=== PATIENT | male | born 1980 | race Caucasian/White ===

== ENCOUNTER 2021-08-10 08:26 | Outpatient (REF) | payer BC, SELFPAY ==
[2021-08-10 11:06] LABS: Alanine Aminotransferase 18 U/L (0-40); Albumin Level 4.3 g/dL (3.5-5.0); Alkaline Phosphatase 67 U/L (39-117); Anion Gap 10 (12-20); Aspartate Amino Transferase 16 U/L (5-37); Bilirubin Total 0.6 mg/dL (0.0-1.0); Blood Urea Nitrogen 14 mg/dL (9-16); Calcium 9.4 mg/dL (8.4-10.2); Carbon Dioxide 28 mmol/L (22-29); Chloride 103 mmol/L (96-108); Cholesterol 166 mg/dL; Estimated Glomerular Filt Rate > 60; Glucose Fasting 100 mg/dL (60-99); HDL Cholesterol 43 mg/dL; LDL Cholesterol Calculated 108 mg/dl; Potassium 4.3 mmol/L (3.3-5.1); Sodium 137 mmol/L (135-145); Total Protein 7.1 g/dL (6.5-8.0); Triglycerides 76 mg/dL
[2021-08-10 11:28] LABS: Prostate Specific Antigen Scr 0.76 ng/mL (<0.05-4.0)
[2021-08-15 15:06] LABS: Testosterone, Free 142.1 pg/mL (35.0-155.0); Testosterone, Total 502 ng/dL (250-1100)
== END 2021-08-10 08:27 | disposition home or self-care (01) ==
LOC: HO.WFDLDS 08:26
PROVIDERS: Visit Provider Family Medicine
DX: Z00.00 Encounter for general adult medical examination without abnormal findings (principal); Z12.5 Encounter for screening for malignant neoplasm of prostate; N52.9 Male erectile dysfunction, unspecified
CPT/HCPCS: 36415; 80053; 80061; 84153; 84402; 84403; 84443

== ENCOUNTER 2022-02-15 07:14 | Outpatient (REF) | payer BC, SELFPAY | END 2022-02-15 07:15 | disposition home or self-care (01) | LOC: HO.WFDLNP 07:14 | PROVIDERS: Visit Provider Family Medicine | DX: Z20.7 Contact with and (suspected) exposure to pediculosis, acariasis and other infestations (principal) | CPT/HCPCS: 87177; 87209 ==

== ENCOUNTER → 2022-07-10 07:50 | Outpatient (BNVA) | payer BC, SELFPAY | PROVIDERS: PCP Family Medicine; Visit Provider Nurse Practitioner Family | DX: Z13.89 Encounter for screening for other disorder (principal) ==

== ENCOUNTER → 2022-07-20 15:58 | Outpatient (REF) | payer BC, SELFPAY | LOC: HO.SL 15:58 | PROVIDERS: PCP Family Medicine; Visit Provider Nurse Practitioner Family | DX: G47.00 Insomnia, unspecified (principal); G47.30 Sleep apnea, unspecified; R06.83 Snoring; R03.0 Elevated blood-pressure reading, without diagnosis of hypertension | CPT/HCPCS: 95806 ==

== ENCOUNTER → 2022-11-02 08:50 | Outpatient (BNVA) | payer BC, SELFPAY | PROVIDERS: PCP Family Medicine; Visit Provider Nurse Practitioner Family ==

== ENCOUNTER 2022-11-29 07:01 | Outpatient (REF) | payer BC, SELFPAY ==
[2022-11-29 11:22] LABS: Appearance Urine Turbid; Color Urine Yellow; Glucose Urine UA Negative (Negative); Leukocyte Esterase Urine Negative (Negative); Nitrite Urine Negative (Negative); PH 5.5 (5.0-9.0); Specific Gravity - Urine 1.025 (1.005-1.025); Urine Blood Negative (Negative); Urine Ketones Negative (Negative); Urine Protein Trace mg/dL (Neg-Trace)
[2022-11-29 11:27] LABS: Alanine Aminotransferase 30 U/L (0-40); Albumin Level 4.3 g/dL (3.5-5.0); Alkaline Phosphatase 64 U/L (39-117); Anion Gap 15 (12-20); Aspartate Amino Transferase 18 U/L (5-37); Bilirubin Total 0.5 mg/dL (0.0-1.0); Blood Urea Nitrogen 18 mg/dL (9-16); Calcium 9.4 mg/dL (8.4-10.2); Carbon Dioxide 24 mmol/L (22-29); Chloride 103 mmol/L (96-108); Cholesterol 160 mg/dL; Estimated Glomerular Filt Rate > 60; Glucose Fasting 100 mg/dL (60-99); HDL Cholesterol 42 mg/dL; LDL Cholesterol Calculated 96 mg/dl; Potassium 3.9 mmol/L (3.3-5.1); Sodium 138 mmol/L (135-145); Total Protein 7.3 g/dL (6.5-8.0); Triglycerides 110 mg/dL
[2022-11-29 11:44] LABS: Creatinine Urine 235.19 mg/dL
[2022-11-29 11:46] LABS: Prostate Specific Antigen Scr 0.55 ng/mL (<0.05-4.0); TSH reflex Free T4 1.93 uIU/mL (0.32-4.0)
== END 2022-11-29 07:02 | disposition home or self-care (01) ==
LOC: HO.WFDLDS 07:01
PROVIDERS: Visit Provider Family Medicine
DX: Z00.00 Encounter for general adult medical examination without abnormal findings (principal); Z12.5 Encounter for screening for malignant neoplasm of prostate; I10 Essential (primary) hypertension; R61 Generalized hyperhidrosis
CPT/HCPCS: 36415; 80053; 80061; 81003; 82043; 84153; 84443

== ENCOUNTER 2023-04-11 09:28 | Outpatient (AMB) | payer BC, SELFPAY ==
[2023-04-11 09:32] VITALS: BP 126/80; PULSE 90; RESP 13; TEMP 36.6; O2SAT 98; BMI 27.9
--- NOTE | 2023-04-11 09:32 | MHC.PC.OV ---
Vital Signs 04/11/23 09:32 Height 5 ft 9 in Weight 189 lb 4 oz BMI 27.9 BP 126/80 Blood Pressure Location Lt brachial Position Sitting Respiration 13 Pulse 90 Pulse Source Pulse Oximeter Temp 98 F Temp Source Temporal Artery Scan Pulse Oximetry (%) 98 Oxygen Delivery Method Room Air Intake Visit Reasons: Red Line On Left Thumb Up to Left Bicep Intake Note: Patient states that he has a paronychia that started in left thumb and is now going up left arm. Patient states that left thumb has been tender and he has been taking ibuprofen for it. Patient states that when he flexes he can also feel a slight pain. Patient would also like a refill on his trazadone. Collet Driller Required: No Accompanied by: Self / Same As Patient Allergies No Known Allergies Allergy (Verified 04/11/23 10:01) Medication List - Last Reconciled 04/11/23 by Merrill Atwood CNP aluminum chloride 20% (Drysol) 1 appl topical 2XW PRN 30 days omeprazole 20 mg PO DAILY 90 days sildenafil 100 mg PO DAILY PRN 30 days trazodone 150 mg (1.5 x 100 mg) PO BEDTIME PRN 30 days Tobacco use date assessed: 04/11/23 Dental Screening Dental Screen Date: 04/11/23 Did you have a dental visit in the last 12 months?: Yes Did you have a dental problem in the last 6 months where you did not have access to dental care?: No Was dental information given to patient?: Patient has dentist HPI HPI Comments History of Present Illness Details 43-year-old male presents with complaints paronychia to the left medial nail fold of the left thumb for the past 4 days. He notes that the area has been painful and worst with touch. He has been taking Ibuprofen 600 mg twice daily with some improvement. He started applying warm soak yesterday. The area on the thumb is swollen and inflamed. Yesterday, he noticed a linear red line from the paronychia to his bicep today; the line is tender to deep touch. He denies drainage, fever, chills, body aches, fatigue, or weakness. [facility] Medical History Hemorrhoids ADHD Surgical History No pertinent past surgical history Family History Father Type 1 diabetes mellitus Heart attack Mother No problems noted. Social History Housing: House Alcohol intake: current Alcohol intake frequency: a few times a month Patient Tobacco Use Status: Former Tobacco user e-Cigarette/Vaping Use: Never Used Second Hand Smoke Exposure: No Substance Use Type: Marijuana service: No Current occupational status: employed Current occupation: Works @ a [employer] Current occupational exposures/hazards: No Cognitive needs: No Hearing needs: No Vision needs: No Questionnaire Thrive Questionnaire Date Thrive assessed: 08/01/21 LYNN-7 AMB Questionnaire LYNN-7 Date LYNN - 7 assessed: 10/12/21 Source: Developed by Drs. Tucker Wheeler, April Bird, Amando Mccormack and colleagues, with an educational ellen from [employer]. Review of Systems Const Details: Const Denies chills, Denies fatigue, Denies fever(s), Denies headache(s) and Denies weakness ENT Denies dizziness and Denies headache(s) Card Denies chest pain, Denies lightheadedness, Denies dyspnea and Denies other (Palpitations) Resp Denies cough, Denies dyspnea, Denies wheezing and Denies other ( shortness of breath) GI Denies abdominal pain, Denies melena, Denies hematochezia, Denies change in bowel habits, Denies dyspepsia and Denies nausea Denies hematuria and Denies dysuria Musc Denies abnormal gait, Denies myalgias, Denies arthralgias, Denies numbness and Denies tingling Skin/Breast Reports as per HPI Neuro Denies abnormal gait, Denies dizziness, Denies headache(s), Denies memory loss, Denies numbness, Denies Sensory deficit (Neuro), Denies tingling and Denies weakness Psych Denies anxiety, Denies depression, Denies memory loss Endo Denies cold intolerance, Denies fatigue, Denies heat intolerance, Denies polydipsia and Denies polyuria Aller/Immun Denies wheezing Physical exam (Primary Care) Vital Signs: Last Vital Signs Temp 98 F 04/11/23 09:32 Pulse 90 04/11/23 09:32 Resp 13 04/11/23 09:32 BP 126/80 04/11/23 09:32 Pulse Ox 98 04/11/23 09:32 Oxygen Delivery Method Room Air 04/11/23 09:32 BMI result Body Mass Index 27.9 Tobacco/Smoking Status: Tobacco use Status Tobacco use date assessed 04/11/23 04/11/23 09:40 Patient Tobacco Use Status Former Tobacco user 04/11/23 09:40 e-Cigarette/Vaping Use Never Used 04/11/23 09:40 Thrive Assessment: Date of Thrive Assessment Date Thrive assessed 08/01/21 04/11/23 09:40 Const Other: General: no acute distress and well developed Nutritional Appearance: well nourished Orientation/consciousness: patient oriented x3 HENMT Head: Yes normocephalic and Yes atraumatic Eyes General: appearance normal, both eyes and all related structures Pupils: Equal, round and reactive pupils present EOM: EOMs intact bilaterally Resp Effort & Inspection: normal respiratory effort Auscultation: clear to auscultation bilaterally Cardio Rate: regular rate Rhythm: regular rhythm Heart sounds: S1 normal heart sound present, S2 normal heart sound present, no gallops, no murmurs and no rubs GI Palpation (GI): No Abdominal aortic bruit present, Soft to palpation, nontender, No hepatosplenomegaly present and No Rebound tenderness present Auscultation: normal bowel sounds General: Yes no CVA tenderness Back/Spine/Pelvis Back: no CVA tenderness Cervical Spine: cervical ROM normal and No Cervical spine tenderness Thoracic/Lumbar Spine: thoraco-lumbar ROM normal, No pain with thoraco-lumbar ROM, No thoracic spinal tenderness and No lumbar spinal tenderness Extrem General: Yes normal to inspection, No edema and No calf tenderness Skin Significant erythema, edema, and tenderness to the medial nail fold of the left thumb, consistent with paronychia. Red linear line extending from the paronychia to the left biceps; tenderness with deep palpation. No drainage noted Neuro General: patient oriented x3, gait normal and no focal neuro deficit Cranial nerves: Yes Equal, round and reactive pupils present Cognition (Neuro): normal cognition Gait exam (Neuro): Normal gait present Sensory Exam: No Sensory deficit (Neuro) Psych Appearance: grossly normal Affect: normal affect Attitude: cooperative Thought process: Normal thought process present Assessment and Plan Assessment & Plan (1) Paronychia of thumb, left: Code(s): L03.012 - Cellulitis of left finger Plan: 43-year-old male presents with complaints paronychia to the medial nail fold of the left thumb for the past 4 days. He noticed a red linear line extending from the Estrella care to the left biceps today. Significant erythema, edema, and tenderness to the medial nail fold of the left thumb, consistent with paronychia. Red linear line extending from the paronychia to the left biceps; tenderness with deep palpation. No drainage noted. Likely infected. Augmentin ordered. Take as prescribed Continue warm soaks with Hibiclens May take Tylenol ibuprofen for pain, fever, or discomfort Will check CBC and CMP Instructed on signs and symptoms of infection to monitor advised to return or go to the ED with worsening or new symptoms Verbalized understanding and agreed with treatment plan. Orders: Orders Complete Blood Count Auto Diff Today L03.012 - Cellulitis of left finger Comprehensive [place]. Panel Fast Today L03.012 - Cellulitis of left finger Medications: New amoxicillin-pot clavulanate 500-125 mg (Augmentin) 1 tab PO BID 7 days 14 tabs 0RF Refilled trazodone 150 mg (1.5 x 100 mg) PO BEDTIME 30 days PRN 45 tabs 0RF insomnia Coding Level of Care Code Est Pt Level 3 (61629) Diagnoses Paronychia of thumb, left L03.012
== END 2023-04-11 10:15 | disposition home or self-care (01) ==
PROVIDERS: PCP Family Medicine; Visit Provider Nurse Practitioner Family
DX: L03.012 Cellulitis of left finger (principal)
CPT/HCPCS: 99214

== ENCOUNTER 2023-04-12 07:01 | Outpatient (REF) | payer BC, SELFPAY ==
[2023-04-12 11:30] LABS: MANUAL DIFF FLAG NO
[2023-04-12 11:39] LABS: Basophils Percent Auto 0.3 % (0-2); Eosinophils Absolute Auto 0.1 X10*3/uL (0.0-0.4); Eosinophils Percent Auto 1.3 % (0-4); Hematocrit 44.2 % (42.0-52.0); Hemoglobin 14.8 g/dl (14.0-18.0); Imm Gran Abs Auto 0.03 X10*3/uL (0.00-0.03); Imm Gran Pct Auto 0.3 % (0.0-0.4); Lymphocytes Percent Auto 21.8 % (20-40); Mean Corpuscular HGB Conc 33.5 g/dl (31.0-36.0); Mean Corpuscular Volume 83.7 fL (80.0-98.0); Mean Platelet Volume 9.6 fL (9.4-12.4); Monocytes Absolute Auto 0.8 X10*3/uL (0.1-1.2); Monocytes Percent Auto 8.4 % (2-11); Neutrophils Absolute Auto 6.4 x10*3/uL (2.0-8.3); Neutrophils Percent Auto 67.9 % (45-73); Platelet Count 204 X10*3/uL (160-400); Red Blood Count 5.28 X10*6/uL (4.60-5.80); Red Cell Distribution Width 13.4 % (11.0-16.0); White Blood Count 9.4 X10*3/uL (4.8-10.8)
[2023-04-12 12:07] LABS: Alanine Aminotransferase 27 U/L (0-40); Albumin Level 4.2 g/dL (3.5-5.0); Alkaline Phosphatase 67 U/L (39-117); Anion Gap 13 (12-20); Aspartate Amino Transferase 19 U/L (5-37); Bilirubin Total 0.5 mg/dL (0.0-1.0); Blood Urea Nitrogen 18 mg/dL (9-16); Calcium 9.7 mg/dL (8.4-10.2); Carbon Dioxide 21 mmol/L (22-29); Chloride 107 mmol/L (96-108); Estimated Glomerular Filt Rate > 60; Glucose Fasting 103 mg/dL (60-99); Potassium 4.2 mmol/L (3.3-5.1); Sodium 137 mmol/L (135-145); Total Protein 7.5 g/dL (6.5-8.0)
== END 2023-04-12 07:02 | disposition home or self-care (01) ==
LOC: HO.WFDLDS 07:01
PROVIDERS: Visit Provider Nurse Practitioner Family
DX: L03.012 Cellulitis of left finger (principal)
CPT/HCPCS: 36415; 80053; 85025

== ENCOUNTER 2023-10-21 08:50 | Outpatient (AMB) | payer BC, SELFPAY ==
[2023-10-21 09:03] VITALS: BP 134/80; PULSE 74; O2SAT 95; BMI 27.7
--- NOTE | 2023-10-21 09:03 | A.OFFPC_ITS ---
Vital Signs 10/21/23 09:03 Height 5 ft 9 in Weight 187 lb 6 oz BMI 27.7 BP 134/80 Blood Pressure Location Lt brachial Position Sitting Pulse 74 Pulse Source Pulse Oximeter Pulse Oximetry (%) 95 Oxygen Delivery Method Room Air Intake Visit Reasons: CPE Intake Note: Patient is here for his physical. Patient would like refill of Trazodone. Allergies No Known Allergies Allergy (Verified 10/21/23 09:06) Tobacco use date assessed: 10/21/23 Dental Screening Dental Screen Date: 10/21/23 Did you have a dental visit in the last 12 months?: Yes Did you have a dental problem in the last 6 months where you did not have access to dental care?: No Was dental information given to patient?: Patient has dentist HPI CPE HPI Details 43 y/o male presents for a CPE with f/u labs and health maintenance. Some labs were drawn 04/12/23. Reviewed labs with pt. Elevated fasting glucose of 103. No recent lipid panel. Pt notes he has been doing a wellness challenge and has been running 5 miles a day. Pt reports ongoing complaints of a hemorrhoid. HPI Comments History of Present Illness Details Documentation assistance for Parish Zelaya MD, was provided by Jeff Ignacio, Neuropsychiatrist on 10/21/2023 9:38 AM EST. I, Dr. Zelaya, have read, observed, and verified documentation. [facility] Medical History Hemorrhoids ADHD Surgical History No pertinent past surgical history Family History Father Type 1 diabetes mellitus Heart attack Mother No problems noted. 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 1. Little interest or pleasure in doing things: not at all 2. Feeling down, depressed, or hopeless: not at all 3. Trouble falling or staying asleep, or sleeping too much: not at all 4. Feeling tired or having little energy: not at all 5. Poor appetite or overeating: not at all 6. Feeling bad about yourself - or that you are a failure or have let yourself or your family down: not at all 7. Trouble concentrating on things, such as reading the newspaper or watching television: not at all 8. Moving or speaking so slowly that other people could have noticed. Or the opposite - being so fidgety or restless that you have been moving around a lot more than usual: not at all 9. Thoughts that you would be better off or of hurting yourself in some way: not at all Total score: 0 Depression Screening Interpretation: Negative Depression Screening Done: Yes 03875 - PHQ-9 Billing: Yes Source: Developed by Drs. Tucker Wheeler, April Bird, Amando Mccormack and colleagues, with an educational ellen from [employer] Thrive Questionnaire Date Thrive assessed: 10/21/23 AUDIT C Alcohol Use Questionnaire (AUDIT-C) 1. How often do you have a drink containing alcohol?: 4 or more times a week 2. How many drinks containing alcohol do you have on a typical day when you are drinking?: 1 or 2 3. How often do you have six or more drinks on one occasion?: Never Total Score: 4 LYNN-7 AMB Questionnaire LYNN-7 Date LYNN - 7 assessed: 10/21/23 Feeling nervous, anxious, or on edge: 0 = Not at all Not being able to stop or control worryin = Not at all Worrying too much about different things: 0 = Not at all Trouble relaxin = Not at all Being so restless that it is hard to sit still: 0 = Not at all Becoming easily annoyed or irritable: 0 = Not at all Feeling afraid as if something awful might happen: 0 = Not at all Total LYNN-7 score (0-4 normal; 5-9 mild; 10-14 moderate; 15-21 severe): 0 Source: Developed by Drs. Tucker Wheeler, April Bird, Amando Mccormack and colleagues, with an educational ellen from [employer] LYNN-7 Assessment Billing LYNN-7 Assessment Tool: LYNN-7 Assessment 27057 Review of Systems Const Denies chills, Denies fatigue, Denies fever(s), Denies headache(s) and Denies weakness Eyes Denies change in vision ENT Denies dizziness, Denies headache(s), Denies hearing loss, Denies nasal congestion, Denies sinus pain, Denies sinus pressure and Denies sore throat Card Denies chest pain, Denies lightheadedness, Denies dyspnea and Denies other (palpitations) Resp Denies cough, Denies dyspnea and Denies wheezing GI Denies abdominal pain, Denies melena, Denies hematochezia, Denies change in bowel habits, Denies dyspepsia and Denies nausea Denies hematuria and Denies dysuria Musc Denies abnormal gait, Denies myalgias, Denies arthralgias, Denies numbness and Denies tingling Skin/Breast Denies rash, Denies unusual bruising and Denies wounds Neuro Denies abnormal gait, Denies dizziness, Denies headache(s), Denies memory loss, Denies numbness, Denies Sensory deficit (Neuro), Denies tingling and Denies weakness Psych Denies anxiety, Denies depression and Denies memory loss Endo Denies cold intolerance, Denies fatigue, Denies heat intolerance, Denies polydipsia and Denies polyuria Amado/Lymph Denies easy bleeding and Denies easy bruising Aller/Immun Denies wheezing Physical exam (Primary Care) Vital Signs: Last Vital Signs Pulse 74 10/21/23 09:03 BP 134/80 10/21/23 09:03 Pulse Ox 95 10/21/23 09:03 Oxygen Delivery Method Room Air 10/21/23 09:03 BMI result Body Mass Index 27.7 Tobacco/Smoking Status: Tobacco use Status Tobacco use date assessed 10/21/23 10/21/23 09:13 Patient Tobacco Use Status Former Tobacco user 10/21/23 09:13 e-Cigarette/Vaping Use Never Used 10/21/23 09:13 PHQ-9: PHQ-9 Score PHQ-9: Total score 0 10/21/23 09:16 Depression Screening Interpretation: Negative Thrive Assessment: Date of Thrive Assessment Date Thrive assessed 10/21/23 10/21/23 09:13 Const General: no acute distress, well developed, alert and awake Nutritional Appearance: well nourished Orientation/consciousness: patient oriented x3 HENMT Head: Yes normocephalic and Yes atraumatic Ears: hearing grossly normal bilaterally and TM's normal bilaterally General nose exam: Normal external nose present and Normal nares present Mouth: Normal oral and palatal mucosa present and moist mucous membranes Teeth and gingiva: dentition normal Throat: Yes posterior oropharynx normal Eyes General: appearance normal, both eyes and all related structures Pupils: Equal, round and reactive pupils present and Pupil accommodation reflex normal EOM: EOMs intact bilaterally Neck Neck: Yes normal visual inspection, Yes no lymphadenopathy and Yes trachea midline Thyroid: Thyroid normal Carotids: no bruits Lymphatic: no lymphadenopathy noted Chest Chest palpation & inspection: normal inspection of the chest Resp Effort & Inspection: normal respiratory effort Auscultation: clear to auscultation bilaterally Cardio Rate: regular rate Rhythm: regular rhythm Heart sounds: S1 normal heart sound present, S2 normal heart sound present, no gallops, no murmurs and no rubs Bruits: no abdominal aortic bruits and no carotid bruits GI Palpation (GI): No Abdominal aortic bruit present, Soft to palpation, nontender, No hepatosplenomegaly present and No Rebound tenderness present Auscultation: normal bowel sounds General: Yes no CVA tenderness Back/Spine/Pelvis Back: no CVA tenderness Cervical Spine: cervical ROM normal and No Cervical spine tenderness Thoracic/Lumbar Spine: thoraco-lumbar ROM normal, No pain with thoraco-lumbar ROM, No thoracic spinal tenderness and No lumbar spinal tenderness Skin Lesions: no lesions Rashes: no rashes Trauma: no lacerations or abrasions Wounds: no wounds Nails: normal Neuro General: patient oriented x3 Cranial nerves: Yes Equal, round and reactive pupils present Cognition (Neuro): normal cognition Gait exam (Neuro): Normal gait present Motor exam (neuro): 5/5 motor strength present throughout Sensory Exam: No Sensory deficit (Neuro) Deep tendon reflexes (DTR's): Right patellar reflex intensity grade: 2+ and Left patellar reflex intensity grade: 2+ Extrem General: Yes normal to inspection and No edema Psych Appearance: grossly normal Affect: normal affect Attitude: cooperative Thought process: Normal thought process present Assessment and Plan Assessment & Plan (1) Adult general medical exam: Code(s): Z00.00 - Encounter for general adult medical examination without abnormal findings Plan: 43-year-old?male?presents?for?complete?physical?exam Encouraged?healthy?diet?with?active?lifestyle?and?plenty?of?exercise (2) Elevated fasting glucose: Code(s): R73.01 - Impaired fasting glucose Plan: Elevated?fasting?blood?sugars?in?the?past. He?is?fasting?today?and?will?get?labs?drawn?including?fasting?blood?sugar?and?wi ll?add?A1c (3) GERD (gastroesophageal reflux disease): Code(s): K21.9 - Gastro-esophageal reflux disease without esophagitis Plan: Managed?with?omeprazole Continue?omeprazole (4) Screening for prostate cancer: Code(s): Z12.5 - Encounter for screening for malignant neoplasm of prostate Plan: PSA?last?year?was?within?normal?limits Rechecking?PSA (5) Family history of colon cancer: Code(s): Z80.0 - Family history of malignant neoplasm of digestive organs Plan: Patient?has?family?history?of?colon?cancer?and?would?like ?to?discuss?with?Gastroenterology. Had?been?referred?in?2021?but?he?says?he?was?never?contacted.??Making?referral?a gain. (6) Hemorrhoids: Code(s): K64.9 - Unspecified hemorrhoids Plan: Ongoing?hemorrhoid Referred?to?general?surgery Orders: Orders Comprehensive [place]. Panel Fast Today Z00.00 - Encounter for general adult medical examination without abnormal findings Lipid Panel Today Z00.00 - Encounter for general adult medical examination without abnormal findings Microalbumin, Random (w Creat) Today I10 - Essential (primary) hypertension TSH reflex Free T4 Today Z00.00 - Encounter for general adult medical examination without abnormal findings UA and rflx microscopic Today Z00.00 - Encounter for general adult medical examination without abnormal findings Prostate Specific Antigen Scr Today Z12.5 - Encounter for screening for malignant neoplasm of prostate Hemoglobin A1c Today R73.01 - Impaired fasting glucose Referrals General Surgery Referral K64.9 - Unspecified hemorrhoids Gastroenterology Referral Z80.0 - Family history of malignant neoplasm of digestive organs Medications: Changed From trazodone 150 mg (1.5 x 100 mg) PO BEDTIME 30 days PRN 45 tabs 0RF insomnia To trazodone 150 mg (1.5 x 100 mg) PO BEDTIME 90 days PRN 135 tabs 0RF insomnia Refilled trazodone 150 mg (1.5 x 100 mg) PO BEDTIME 30 days PRN 45 tabs 0RF insomnia Coding Level of Care Code Est Pt Level 3 (64330) Est Pt Prev Care 40-64y(49418) Diagnoses Adult general medical exam Z00.00 Elevated fasting glucose R73.01 GERD (gastroesophageal reflux disease) K21.9 Screening for prostate cancer Z12.5 Family history of colon cancer Z80.0 Hemorrhoids K64.9 Additional Codes LYNN-7 Assessment Billing - LYNN-7 Assessment Tool: LYNN-7 Assessment 05053 ([id number])
== END 2023-10-21 09:56 | disposition home or self-care (01) ==
PROVIDERS: Visit Provider Family Medicine
DX: Z00.00 Encounter for general adult medical examination without abnormal findings (principal); R73.01 Impaired fasting glucose; K21.9 Gastro-esophageal reflux disease without esophagitis; Z12.5 Encounter for screening for malignant neoplasm of prostate; Z80.0 Family history of malignant neoplasm of digestive organs; K64.9 Unspecified hemorrhoids
CPT/HCPCS: 99396

== ENCOUNTER 2023-10-21 10:11 | Outpatient (REF) | payer BC, SELFPAY ==
[2023-10-21 11:28] LABS: Appearance Urine Clear; Color Urine Yellow; Glucose Urine UA Negative (Negative); Leukocyte Esterase Urine Negative (Negative); Nitrite Urine Negative (Negative); PH 8.5 (5.0-9.0); Specific Gravity - Urine 1.025 (1.005-1.025); Urine Blood Negative (Negative); Urine Ketones Negative (Negative); Urine Protein Trace mg/dL (Neg-Trace)
[2023-10-21 11:45] LABS: Estimated Average Glucose 111 mg/dL; Hemoglobin A1c % 5.5 % (<6.0)
[2023-10-21 12:14] LABS: Alanine Aminotransferase 20 U/L (0-40); Albumin Level 4.3 g/dL (3.5-5.0); Alkaline Phosphatase 58 U/L (39-117); Anion Gap 13 (12-20); Aspartate Amino Transferase 21 U/L (5-37); Bilirubin Total 0.4 mg/dL (0.0-1.0); Blood Urea Nitrogen 18 mg/dL (9-16); Calcium 9.8 mg/dL (8.4-10.2); Carbon Dioxide 25 mmol/L (22-29); Chloride 105 mmol/L (96-108); Cholesterol 159 mg/dL (<200); Estimated Glomerular Filt Rate > 60; Glucose Fasting 97 mg/dL (60-99); HDL Cholesterol 43 mg/dL (>40); LDL Cholesterol Calculated 102 mg/dL (<100); Potassium 4.2 mmol/L (3.3-5.1); Sodium 139 mmol/L (135-145); Total Protein 7.4 g/dL (6.5-8.0); Triglycerides 74 mg/dL (<150)
[2023-10-21 12:19] LABS: Creatinine Urine 150.89 mg/dL; Microalbum/Creatinine Ratio Ur 17.2 ug/mg cr (<30)
[2023-10-21 12:31] LABS: TSH reflex Free T4 1.23 uIU/mL (0.32-4.0)
== END 2023-10-21 10:12 | disposition home or self-care (01) ==
LOC: HO.WFDLDS 10:11
PROVIDERS: Visit Provider Family Medicine
DX: Z00.00 Encounter for general adult medical examination without abnormal findings (principal); R73.01 Impaired fasting glucose; I10 Essential (primary) hypertension; Z12.5 Encounter for screening for malignant neoplasm of prostate
CPT/HCPCS: 36415; 80053; 80061; 81003; 82043; 82570; 83036; 84153; 84443

== ENCOUNTER 2023-11-14 14:03 | Outpatient (AMB) | payer BC, SELFPAY ==
--- NOTE | 2023-11-14 10:41 | A.OFFPC_ITS ---
Intake Visit Reasons: f/u CPE-labs via telemedicine City Superintendent Required: No Allergies No Known Allergies Allergy (Verified 11/14/23 14:01) Tobacco use date assessed: 10/21/23 Dental Screening Dental Screen Date: 10/21/23 HPI f/u CPE-labs via telemedicine HPI Details 43 y/o male presents to f/u CPE-labs via telemedicine. Labs were drawn 10/21/23. Reviewed labs with pt. A1c 5.5%. Triglycerides 74. TC 159. LDL 102. HDL 43. HPI Comments History of Present Illness Details Documentation assistance for Parish Zelaya MD, was provided by Jeff Ignacio,? [employer] Team Member on 11/14/2023 at 2:14 PM EST. I, Dr. Zelaya, have read, observed, and verified documentation. [facility] Medical History (Updated 11/14/23 @ 14:13 by Jeff Ignacio) Hemorrhoids ADHD Surgical History No pertinent past surgical history Family History Father Type 1 diabetes mellitus Heart attack Mother No problems noted. 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 Tucker Wheeler, April Bird, Amando Mccormack and colleagues, with an educational ellen from [employer]. Review of Systems Const Denies chills, Denies fatigue, Denies fever(s), Denies headache(s) and Denies weakness ENT Denies dizziness and Denies headache(s) Card Denies dyspnea Resp Denies cough, Denies dyspnea, Denies wheezing and Denies other (shortness of breath) Musc Denies numbness and Denies tingling Neuro Denies dizziness, Denies headache(s), Denies numbness, Denies tingling and Denies weakness Psych Denies anxiety and Denies depression Endo Denies fatigue Aller/Immun Denies wheezing Physical exam (Primary Care) Tobacco/Smoking Status: Tobacco use Status Tobacco use date assessed 10/21/23 11/14/23 10:41 Patient Tobacco Use Status Former Tobacco user 11/14/23 10:41 e-Cigarette/Vaping Use Never Used 11/14/23 10:41 Thrive Assessment: Date of Thrive Assessment Date Thrive assessed 10/21/23 11/14/23 10:41 Telehealth Telehealth Telehealth Platform: Telephone Location of provider rendering services: practice address Location of patient: other Patient Identification confirmed using: Name, : Yes Telehealth method: voice only Patient verbally consented to treatment: Yes Patient verbally consented to billing insurance company: Yes Patient informed of any privacy concerns related to visit: Yes Minutes spent on Phone/Video with Pt.: 6 Assessment and Plan Assessment & Plan (1) Elevated fasting glucose: Code(s): R73.01 - Impaired fasting glucose Plan: A1c?5.5%?is?in?to p?normal?range.??Likely?some?insulin?resistance?and?encouraged?a?diet?lower?in?s ugars?and?starches (2) Elevated LDL cholesterol level: Code(s): E78.00 - Pure hypercholesterolemia, unspecified Plan: LDL?cholesterol?1?O2?is?slightly?above?goal?of?less?than?100 HDL?is?good No?indication?for ?medicine?at?this?time.??Recommended?diet?lower?in?saturated?fats?and?cholestero l,?exercise?and?weight?loss Coding Level of Care Code Tele Est Pt Level 2 (30948) Diagnoses Elevated fasting glucose R73.01 Elevated LDL cholesterol level E78.00
== END 2023-11-25 09:37 | disposition home or self-care (01) ==
LOC: HO.HMGFM 14:03
PROVIDERS: PCP Family Medicine; Visit Provider Family Medicine
DX: R73.01 Impaired fasting glucose (principal); E78.00 Pure hypercholesterolemia, unspecified
CPT/HCPCS: 99441

== ENCOUNTER 2023-11-27 08:47 | Outpatient (AMB) | payer BC, SELFPAY ==
[2023-11-27 08:48] VITALS: BMI 27.7
--- NOTE | 2023-11-27 08:48 | A.OFFVIS_ITS ---
Vital Signs 11/27/23 08:48 Height 5 ft 9 in Weight 187 lb 6.004 oz BMI 27.7 Intake Visit Reasons: Hemorrhoids Intake Note: This patient presents for an assessment for hemorrhoids. Patient c/o; reports no rectal bleeding, pain or constipation. Material Checker Required: No Accompanied by: Self / Same As Patient Allergies No Known Allergies Allergy (Verified 11/27/23 08:54) Medication List - Last Reconciled 11/27/23 by Humberto Can MD metoprolol tartrate 25 mg PO DAILY PRN 30 days omeprazole 20 mg PO DAILY 90 days sildenafil 100 mg PO DAILY PRN 30 days trazodone 150 mg (1.5 x 100 mg) PO BEDTIME PRN 90 days HPI HPI Hemorrhoids: Details: 41-year-old male referred for hemorrhoid issues. He says he has known he has had hemorrhoids for over 10 years. He describes occasional bleeding do this sometimes can be heavy. He says that this is not very often. He says he also be have some discomfort bowel movements He says that his symptoms have been kind of annoying. He has planning a long hiking trip he is a little concerned about his hemorrhoids. He denies constipation. [facility] Medical History (Updated 11/27/23 @ 09:13 by Humberto Can MD) Bleeding hemorrhoids Hemorrhoids ADHD Surgical History No pertinent past surgical history Family History Father Type 1 diabetes mellitus Heart attack Mother No problems noted. Social History Housing: House Alcohol intake: current Alcohol intake frequency: a few times a month Patient Tobacco Use Status: Former Tobacco user e-Cigarette/Vaping Use: Never Used Second Hand Smoke Exposure: No Substance Use Type: Marijuana service: No Current occupational status: employed Current occupation: Works @ a [employer] Current occupational exposures/hazards: No Cognitive needs: No Hearing needs: No Vision needs: No Review of Systems Const Denies chills and Denies fever(s) Card Denies chest pain, Denies dyspnea and Denies dyspnea on exertion Resp Denies cough, Denies dyspnea and Denies dyspnea on exertion GI Reports hematochezia and Denies change in bowel habits Denies hematuria and Denies difficulty urinating Musc Denies back pain and Denies limited range of motion Neuro Denies focal weakness and Denies convulsions Psych Denies depression and Denies mood swings Physical Exam Vital Signs: BMI result Body Mass Index 27.7 Const General: comfortable and no acute distress Orientation/consciousness: patient oriented x3 Neck Neck: Yes no lymphadenopathy Resp Auscultation: clear to auscultation bilaterally Cardio Rhythm: regular rhythm GI Other: Rectal exam shows an external hemorrhoid on the right, moderate size Palpation (GI): Soft to palpation, nontender and no guarding Neuro General: patient oriented x3 Office Procedures Anoscopy He was in dandy-knife position. The anoscope was gently inserted. A full examination of the anal canal was done. He did have some mixed columns of internal external hemorrhoids on the right side. There were no other lesions. There was no obvious fissure. There was no induration on digital exam.. There was no blood [id number] Assessment & Plan Assessment & Plan (1) Bleeding hemorrhoids: Code(s): K64.9 - Unspecified hemorrhoids Category: Medical Plan: He says that he has hemorrhoids have been starting to annoy him over the years. He is considering proceeding with hemorrhoidectomy. I explained the technique of hemorrhoidectomy. I reviewed the risks including but not limited to bleeding, infections and postop pain. I reviewed with him what to expect postoperatively He says that he may schedule this in the wintertime when he has time off from work. He said he will call me once he decides to proceed. Coding Level of Care Code New Pt Level 3 (97804) Diagnoses Bleeding hemorrhoids K64.9 CPT Codes Details - CPT: 71877-[id number] ([id number])
== END 2023-11-27 09:09 | disposition home or self-care (01) ==
PROVIDERS: PCP Family Medicine; Referring Provider Family Medicine; Visit Provider Surgery
DX: K64.9 Unspecified hemorrhoids (principal)
CPT/HCPCS: 46600; 99203

== ENCOUNTER → 2023-11-27 08:47 | Outpatient (BNVA) | payer BC, SELFPAY | PROVIDERS: PCP Family Medicine; Visit Provider Surgery | DX: K64.8 Other hemorrhoids (principal); K64.4 Residual hemorrhoidal skin tags | CPT/HCPCS: 46600 ==

== ENCOUNTER 2024-04-23 08:25 | Outpatient (AMB) | payer BC, SELFPAY ==
--- NOTE | 2024-04-23 08:43 | A.OFFPC_ITS ---
Vital Signs 04/23/24 08:45 Height 5 ft 9 in Weight 176 lb 4 oz BMI 26.0 BP 120/60 Blood Pressure Location Rt brachial Position Sitting Respiration 14 Pulse 80 Pulse Source Pulse Oximeter Temp 98.1 F Temp Source Oral Pulse Oximetry (%) 96 Oxygen Delivery Method Room Air Intake Visit Reasons: ED Allergies No Known Allergies Allergy (Verified 04/23/24 08:43) Tobacco use date assessed: 10/21/23 Dental Screening Dental Screen Date: 10/21/23 HPI ED HPI Details 44 y/o male presents today with complain ts of ED. Had notes he had trialed sildenafil 100mg p.r.n. Has not trialed any other ED meds. He is on metoprolol 25mg for anxiety. HPI Comments History of Present Illness Details Documentation assistance for Parish Zelaya MD, was provided by Jeff Ignacio,? Setter Off on 04/23/2024 at 8:57 AM EST. I, Dr. Zelaya, have read, observed, and verified documentation. [facility] Medical History (Updated 04/23/24 @ 09:02 by Jeff Ignacio) Bleeding hemorrhoids Hemorrhoids ADHD Surgical History No pertinent past surgical history Family History Father Type 1 diabetes mellitus Heart attack Mother No problems noted. Social History Housing: House Alcohol intake: current Alcohol intake frequency: a few times a month Patient Tobacco Use Status: Former Tobacco user e-Cigarette/Vaping Use: Never Used Second Hand Smoke Exposure: No Substance Use Type: Marijuana service: No Current occupational status: employed Current occupation: Works @ a [employer] Current occupational exposures/hazards: No Cognitive needs: No Hearing needs: No Vision needs: No Questionnaire PHQ-9 Over the last 2 weeks, how often have you been bothered by any of the following problems? 1. Little interest or pleasure in doing things: not at all 2. Feeling down, depressed, or hopeless: not at all 3. Trouble falling or staying asleep, or sleeping too much: not at all 4. Feeling tired or having little energy: not at all 5. Poor appetite or overeating: not at all 6. Feeling bad about yourself - or that you are a failure or have let yourself or your family down: not at all 7. Trouble concentrating on things, such as reading the newspaper or watching television: not at all 8. Moving or speaking so slowly that other people could have noticed. Or the opposite - being so fidgety or restless that you have been moving around a lot more than usual: not at all 9. Thoughts that you would be better off or of hurting yourself in some way: not at all Total score: 0 Source: Developed by Drs. Tucker Wheeler, April Bird, Amando Mccormack and colleagues, with an educational ellen from [employer]. Thrive Questionnaire Date Thrive assessed: 10/21/23 I am a: Patient What is your living situation today?: I have a steady place to live Within the past 12 months, did the food you bought not last and you didn't have the money to get more?: Never true Within the past 12 months, did you worry whether your food would run out before you got money to buy more?: Never true Do you have trouble paying for medicines?: No Do you have trouble getting transportation to medical appointments?: No Do you have trouble paying your heating and electricity bill?: No Do you have trouble taking care of your child, family member or friend?: No Do you have trouble with day-to-day activities such as bathing, preparing meals, shopping, managing finances, etc.?: No Are you currently unemployed and looking for a job?: No Are you interested in more education?: Yes Please select the resources that you would like help with: None Currently or been in a relationship where the following occur: No concerns reported THRIVE Score: 0 AUDIT C Alcohol Use Questionnaire (AUDIT-C) 1. How often do you have a drink containing alcohol?: 2-4 times a month 2. How many drinks containing alcohol do you have on a typical day when you are drinking?: 1 or 2 3. How often do you have six or more drinks on one occasion?: Never Total Score: 2 LYNN-7 AMB Questionnaire LYNN-7 Date LYNN - 7 assessed: 10/21/23 Feeling nervous, anxious, or on edge: 2 = More than half the days Not being able to stop or control worryin = Not at all Worrying too much about different things: 0 = Not at all Trouble relaxin = Not at all Being so restless that it is hard to sit still: 0 = Not at all Becoming easily annoyed or irritable: 1 = Several days Feeling afraid as if something awful might happen: 0 = Not at all Total LYNN-7 score (0-4 normal; 5-9 mild; 10-14 moderate; 15-21 severe): 3 Source: Developed by Drs. Tucker Wheeler, April Bird, Amando Mccormack and colleagues, with an educational ellen from [employer]. Review of Systems Const Denies chills, Denies fatigue, Denies fever(s), Denies headache(s) and Denies weakness ENT Denies dizziness and Denies headache(s) Card Denies dyspnea Resp Denies cough, Denies dyspnea, Denies wheezing and Denies other (shortness of breath) Musc Denies numbness and Denies tingling Neuro Denies dizziness, Denies headache(s), Denies numbness, Denies tingling and Denies weakness Psych Reports anxiety and Denies depression Endo Denies fatigue Aller/Immun Denies wheezing Physical exam (Primary Care) Vital Signs: Last Vital Signs Temp 98.1 F 04/23/24 08:45 Pulse 80 04/23/24 08:45 Resp 14 04/23/24 08:45 BP 120/60 04/23/24 08:45 Pulse Ox 96 04/23/24 08:45 Oxygen Delivery Method Room Air 04/23/24 08:45 BMI result Body Mass Index 26.0 Tobacco/Smoking Status: Tobacco use Status Tobacco use date assessed 10/21/23 04/23/24 08:48 Patient Tobacco Use Status Former Tobacco user 04/23/24 08:48 e-Cigarette/Vaping Use Never Used 04/23/24 08:48 PHQ-9: PHQ-9 Score PHQ-9: Total score 0 04/23/24 08:48 Thrive Assessment: Date of Thrive Assessment Date Thrive assessed 10/21/23 04/23/24 08:48 Currently or been in a relationship where the following occur: No concerns reported Const General: well developed; No acute distress Nutritional Appearance: well nourished Orientation/consciousness: patient oriented x3 HENMT Head: Yes normocephalic and Yes atraumatic Eyes General: appearance normal, both eyes and all related structures Pupils: Equal, round and reactive pupils present EOM: EOMs intact bilaterally Resp Effort & Inspection: normal respiratory effort Neuro General: patient oriented x3 and gait normal Cranial nerves: Yes Equal, round and reactive pupils present Psych Affect: normal affect Coding Level of Care Code Est Pt Level 3 (27941) Diagnoses Erectile dysfunction N52.9 Anxiety F41.9 Assessment & Plan Assessment & Plan (1) Erectile dysfunction: Code(s): N52.9 - Male erectile dysfunction, unspecified Category: Medical Plan: Ongoing/worsening?erectile?dysfunction. Had?tried?sildenafil?100?mg?and?this?is?not?lasting Will?try?Cialis Will?recheck?testosterone?levels?and?labs?including?thyroid?levels. He?is?on?metoprolol?for?anxiety?and?this?could?be?affecting?ability?to?generate? an?erection?also. He?will?try?using Cialis?when?he?has?not?been? using?metoprolol We?discussed?other?medications?rather?than?metoprolol?for?anxiety-see?below Referred?to?urology Referred?to?[facility]?psychiatric?consult?team?to?help?connect?with?a?therapist/couple s?therapist (2) Anxiety: Code(s): F41.9 - Anxiety disorder, unspecified Category: Medical Plan: Ongoing?anxiety.??Metoprolol?significantly?helps.??However?this?may?be?worsening ?ED. We?discussed?1st?and?briefly?2nd?line?medications?for?anxiety. Patient?wou ld?like?to?continue?with?metoprolol?but?hold?off?on?using?it?when?he?wants?to?us e?Cialis?as?above Referred?to?[facility]?psychiatric?consult?team We?can?follow-up?in?a?few?weeks?to?see?if?above?plan?is?helpi ng.??Also?discussed?clonidine?may?acutely?improve?anxiety?without?lasting?as?chelo g Orders: Orders Comprehensive Rosamond. Panel Fast Today N52.9 - Male erectile dysfunction, unspecified, Z00.00 - Encounter for general adult medical examination without abnormal findings Lipid Panel Today E78.00 - Pure hypercholesterolemia, unspecified, Z00.00 - Encounter for general adult medical examination without abnormal findings TSH reflex Free T4 Today N52.9 - Male erectile dysfunction, unspecified, Z00.00 - Encounter for general adult medical examination without abnormal findings Testosterone, Free/Total Today N52.9 - Male erectile dysfunction, unspecified Referrals Urology Referral N52.9 - Male erectile dysfunction, unspecified Psychiatry Outpatient Consultation Service F41.9 - Anxiety disorder, unspecified, N52.9 - Male erectile dysfunction, unspecified Medications: New tadalafil (Cialis) administer approximately 30min before sexual activity; do not use more than 1 dose per 24hrs 20 mg PO DAILY 30 days PRN 20 tabs 4RF sexual activity Changed From metoprolol tartrate 25 mg PO DAILY 30 days PRN 14 tabs 1RF anxiety To metoprolol tartrate 25 mg PO DAILY 90 days PRN 90 tabs 3RF anxiety Discontinued sildenafil administer 30 minutes to 4 hours before activity Discontinued Reason: Doctor's Order 100 mg PO DAILY 30 days PRN 6 tabs 0RF sexual activity
[2024-04-23 08:45] VITALS: BP 120/60; PULSE 80; RESP 14; TEMP 36.7; O2SAT 96; BMI 26.0
== END 2024-04-23 10:00 | disposition home or self-care (01) ==
LOC: HO.HMCFM 08:26
PROVIDERS: PCP Family Medicine; Visit Provider Family Medicine
DX: N52.9 Male erectile dysfunction, unspecified (principal); F41.9 Anxiety disorder, unspecified

== ENCOUNTER 2025-03-05 15:49 | Outpatient (AMB) | payer BC, SELFPAY ==
--- OUTSIDE RECORDS SUMMARY | 2025-03-05 15:52 | XMS_ITS | Clinical Summary ---
Author Organization [facility] Address [address] [place] [id number] Phone Care Team Providers Care Tool Dresser Name Role Phone GomezJacy nation Bhavya JARQUIN Primary Care Provider Social History Tobacco Use Types Packs/Day Years Used Date Smoking Tobacco: Never Assessed Education Answer Date Recorded Are you interested in more education? Not on jerilyn e 10/12/2022 Are you concerned about learning? Not on file 10/12/2022 No 10/12/2022 No 10/12/2022 Digital Access Answer Date Recorded No 11/13/2022 No 11/13/2022 No 11/13/2022 Reliable internet access at home? Not on file 11/13/2022 Device with a working camera? Not on file Sex and Gender Information Value Date Recorded Sex Assigned at Not on file Legal Sex Male 8:52 AM EST Gender Identity Not on file Sexual Orientation Not on file Plan of Treatment Not on file Medical Devices Not on file Insurance [employer] PPO POS [employer] PPO POS [employer] PPO POS [employer] PPO POS [employer] PPO POS [employer] PPO POS Care Teams Tool Dresser Relationship Specialty Start Date End Date Jacy Gomez NP PCP - General Family Medicine 04/24/19 Additional Source Comments The information contained in this document represents components of the legal health record. It is not the complete legal health record.[facility]
[2025-03-05 15:53] VITALS: BP 130/82; PULSE 80; O2SAT 96; BMI 26.4
--- NOTE | 2025-03-05 15:53 | MHC.PC.OV ---
Vital Signs 03/05/25 15:53 Height 5 ft 9 in Weight 179 lb BMI 26.4 BP 130/82 Blood Pressure Location Rt brachial Position Sitting Pulse 80 Pulse Source Pulse Oximeter Pulse Oximetry (%) 96 Oxygen Delivery Method Room Air Intake Visit Reasons: Annual PE Allergies No Known Allergies Allergy (Verified 03/05/25 15:57) Medication List - Last Reconciled 03/05/25 by Parish Zelaya MD metoprolol tartrate 25 mg PO DAILY PRN 90 days omeprazole 20 mg PO DAILY 90 days tadalafil (Cialis) 20 mg PO DAILY PRN 30 days trazodone 150 mg (1.5 x 100 mg) PO BEDTIME PRN 30 days Tobacco use date assessed: 03/05/25 Dental Screening Dental Screen Date: 03/05/25 Did you have a dental visit in the last 12 months?: No Did you have a dental problem in the last 6 months where you did not have access to dental care?: No Was dental information given to patient?: Patient has dentist HPI Annual PE HPI Details 44 y/o male presents for a CPE with f.u labs and health maint. No recent labs to review. Reports FHx of colon cancer. Reports some relationship issues. HPI Comments History of Present Illness Details Documentation assistance for Parish Zelaya MD, was provided by Jeff Ignacio,? Forest [employer] Prevention Manager on 03/05/2025 at 4:13 PM EST. I, Dr. Zelaya, have read, observed, and verified documentation. ?? PFSH Medical History Bleeding hemorrhoids Hemorrhoids ADHD Surgical History No pertinent past surgical history Family History Father Type 1 diabetes mellitus Heart attack Mother No problems noted. Social History Housing: House Alcohol intake: current Alcohol intake frequency: a few times a month Patient Tobacco Use Status: Former Tobacco user e-Cigarette/Vaping Use: Never Used Second Hand Smoke Exposure: No Substance Use Type: Marijuana service: No Current occupational status: employed Current occupation: Works @ a [employer] Current occupational exposures/hazards: No Cognitive needs: No Hearing needs: No Vision needs: No Questionnaire PHQ-9 Over the last 2 weeks, how often have you been bothered by any of the following problems? 1. Little interest or pleasure in doing things: not at all 2. Feeling down, depressed, or hopeless: not at all 3. Trouble falling or staying asleep, or sleeping too much: not at all 4. Feeling tired or having little energy: not at all 5. Poor appetite or overeating: not at all 6. Feeling bad about yourself - or that you are a failure or have let yourself or your family down: not at all 7. Trouble concentrating on things, such as reading the newspaper or watching television: not at all 8. Moving or speaking so slowly that other people could have noticed. Or the opposite - being so fidgety or restless that you have been moving around a lot more than usual: not at all 9. Thoughts that you would be better off or of hurting yourself in some way: not at all Total score: 0 Depression Screening Interpretation: Negative Depression Screening Done: Yes 41803 - PHQ-9 Billing: Yes Source: Developed by Drs. Tucker Wheeler, April Bird, Amando Mccormack and colleagues, with an educational ellen from [employer]. Thrive Questionnaire Date Thrive assessed: 03/02/25 I am a: Patient What is your living situation today?: I have a steady place to live Within the past 12 months, did the food you bought not last and you didn't have the money to get more?: Never true Within the past 12 months, did you worry whether your food would run out before you got money to buy more?: Never true Do you have trouble paying for medicines?: No Do you have trouble getting transportation to medical appointments?: No Do you have trouble paying your heating and electricity bill?: No Do you have trouble taking care of your child, family member or friend?: No Do you have trouble with day-to-day activities such as bathing, preparing meals, shopping, managing finances, etc.?: No Are you currently unemployed and looking for a job?: No Are you interested in more education?: Yes Please select the resources that you would like help with: None Currently or been in a relationship where the following occur: No concerns reported THRIVE Score: 0 AUDIT C Alcohol Use Questionnaire (AUDIT-C) 1. How often do you have a drink containing alcohol?: 2-4 times a month 2. How many drinks containing alcohol do you have on a typical day when you are drinking?: 1 or 2 3. How often do you have six or more drinks on one occasion?: Never Total Score: 2 LYNN-7 AMB Questionnaire LYNN-7 Date LYNN - 7 assessed: 03/05/25 Feeling nervous, anxious, or on edge: 1 = Several days Not being able to stop or control worryin = Several days Worrying too much about different things: 0 = Not at all Trouble relaxin = Several days Being so restless that it is hard to sit still: 0 = Not at all Becoming easily annoyed or irritable: 1 = Several days Feeling afraid as if something awful might happen: 0 = Not at all Total LYNN-7 score (0-4 normal; 5-9 mild; 10-14 moderate; 15-21 severe): 4 Source: Developed by Drs. Tucker Wheeler, April Bird, Amando Mccormack and colleagues, with an educational ellen from [employer]. LYNN-7 Assessment Billing LYNN-7 Assessment Tool: LYNN-7 Assessment 77612 Review of Systems Const Denies chills, Denies fatigue, Denies fever(s), Denies headache(s) and Denies weakness Eyes Denies change in vision ENT Denies dizziness, Denies headache(s), Denies hearing loss, Denies nasal congestion, Denies sinus pain, Denies sinus pressure and Denies sore throat Card Denies chest pain, Denies lightheadedness, Denies dyspnea and Denies other (palpitations) Resp Denies cough, Denies dyspnea and Denies wheezing GI Denies abdominal pain, Denies melena, Denies hematochezia, Denies change in bowel habits, Denies dyspepsia and Denies nausea Denies hematuria and Denies dysuria Musc Denies abnormal gait, Denies myalgias, Denies arthralgias, Denies numbness and Denies tingling Skin/Breast Denies rash, Denies unusual bruising and Denies wounds Neuro Denies abnormal gait, Denies dizziness, Denies headache(s), Denies memory loss, Denies numbness, Denies Sensory deficit (Neuro), Denies tingling and Denies weakness Psych Denies anxiety, Denies depression and Denies memory loss Endo Denies cold intolerance, Denies fatigue, Denies heat intolerance, Denies polydipsia and Denies polyuria Amado/Lymph Denies easy bleeding and Denies easy bruising Aller/Immun Denies wheezing Physical exam (Primary Care) Vital Signs: Last Vital Signs Pulse 80 03/05/25 15:53 BP 130/82 03/05/25 15:53 Pulse Ox 96 03/05/25 15:53 Oxygen Delivery Method Room Air 03/05/25 15:53 BMI result Body Mass Index 26.4 Tobacco/Smoking Status: Tobacco use Status Tobacco use date assessed 03/05/25 03/05/25 15:58 Patient Tobacco Use Status Former Tobacco user 03/05/25 15:58 e-Cigarette/Vaping Use Never Used 03/05/25 15:58 PHQ-9: PHQ-9 Score PHQ-9: Total score 0 03/05/25 16:11 Depression Screening Interpretation: Negative Thrive Assessment: Date of Thrive Assessment Date Thrive assessed 03/02/25 03/05/25 15:58 Currently or been in a relationship where the following occur: No concerns reported Const General: no acute distress, well developed, alert and awake Nutritional Appearance: well nourished Orientation/consciousness: patient oriented x3 HENMT Head: Yes normocephalic and Yes atraumatic Ears: hearing grossly normal bilaterally and TM's normal bilaterally General nose exam: Normal external nose present and Normal nares present Mouth: Normal oral and palatal mucosa present and moist mucous membranes Teeth and gingiva: dentition normal Throat: Yes posterior oropharynx normal Eyes General: appearance normal, both eyes and all related structures Pupils: Equal, round and reactive pupils present and Pupil accommodation reflex normal EOM: EOMs intact bilaterally Neck Neck: Yes normal visual inspection, Yes no lymphadenopathy and Yes trachea midline Thyroid: Thyroid normal Carotids: no bruits Lymphatic: no lymphadenopathy noted Chest Chest palpation & inspection: normal inspection of the chest Resp Effort & Inspection: normal respiratory effort Auscultation: clear to auscultation bilaterally Cardio Rate: regular rate Rhythm: regular rhythm Heart sounds: S1 normal heart sound present, S2 normal heart sound present, no gallops, no murmurs and no rubs Bruits: no abdominal aortic bruits and no carotid bruits GI Palpation (GI): No Abdominal aortic bruit present, Soft to palpation, nontender, No hepatosplenomegaly present and No Rebound tenderness present Auscultation: normal bowel sounds General: Yes no CVA tenderness Back/Spine/Pelvis Back: no CVA tenderness Cervical Spine: cervical ROM normal and No Cervical spine tenderness Thoracic/Lumbar Spine: thoraco-lumbar ROM normal, No pain with thoraco-lumbar ROM, No thoracic spinal tenderness and No lumbar spinal tenderness Skin Lesions: no lesions Rashes: no rashes Trauma: no lacerations or abrasions Wounds: no wounds Nails: normal Neuro General: patient oriented x3 Cranial nerves: Yes Equal, round and reactive pupils present Cognition (Neuro): normal cognition Gait exam (Neuro): Normal gait present Motor exam (neuro): 5/5 motor strength present throughout Sensory Exam: No Sensory deficit (Neuro) Deep tendon reflexes (DTR's): Right patellar reflex intensity grade: 2+ and Left patellar reflex intensity grade: 2+ Extrem General: Yes normal to inspection and No edema Psych Appearance: grossly normal Affect: normal affect Attitude: cooperative Thought process: Normal thought process present Coding Level of Care Code Est Pt Level 3 (75262) Est Pt Prev Care 40-64y(32624) Diagnoses Adult general medical exam Z00.00 Screening for prostate cancer Z12.5 Screening for colon cancer Z12.11 Anxiety F41.9 Additional Codes LYNN-7 Assessment Billing - LYNN-7 Assessment Tool: LYNN-7 Assessment 35134 ([id number]) PHQ-9 - 10993 - PHQ-9 Billing: Yes ([id number]) Assessment & Plan Assessment & Plan (1) Adult general medical exam: Code(s): Z00.00 - Encounter for general adult medical examination without abnormal findings Category: Medical Plan: 44-year-old male presents for complete physical exam Exam within normal limits (2) Screening for prostate cancer: Code(s): Z12.5 - Encounter for screening for malignant neoplasm of prostate Category: Medical Plan: Due for PSA Ordered (3) Screening for colon cancer: Code(s): Z12.11 - Encounter for screening for malignant neoplasm of colon Category: Medical (4) Anxiety: Code(s): F41.9 - Anxiety disorder, unspecified Category: Medical Plan Family history of colon cancer Patient would like a referral to gastroenterology-referred Relationship issues and he would like a referral to a therapist. Refer to the nurse navigator to connect him with a therapist. Orders: Orders Lipid Panel Today Z00.00 - Encounter for general adult medical examination without abnormal findings Prostate Specific Antigen Scr Today Z12.5 - Encounter for screening for malignant neoplasm of prostate UA CC w/rflx Micro + Cult Today Z00.00 - Encounter for general adult medical examination without abnormal findings TSH reflex Free T4 Today Z00.00 - Encounter for general adult medical examination without abnormal findings Complete Blood Count Auto Diff Today Z00.00 - Encounter for general adult medical examination without abnormal findings Comprehensive [place]. Panel Fast Today Z00.00 - Encounter for general adult medical examination without abnormal findings Microalbumin, Random (w Creat) Today I10 - Essential (primary) hypertension Referrals Nurse Navigator Referral F41.9 - Anxiety disorder, unspecified Medications: Changed From trazodone 150 mg (1.5 x 100 mg) PO BEDTIME 30 days PRN 45 tabs 0RF insomnia To trazodone 150 mg (1.5 x 100 mg) PO BEDTIME PRN 135 tabs 3RF insomnia 90 days Discontinued tadalafil (Cialis) administer approximately 30min before sexual activity; do not use more than 1 dose per 24hrs Discontinued Reason: Doctor's Order 20 mg PO DAILY 30 days PRN 20 tabs 4RF sexual activity
== END 2025-03-05 16:57 | disposition home or self-care (01) ==
LOC: HO.HMCFM 15:50
PROVIDERS: PCP Family Medicine; Visit Provider Family Medicine
DX: Z00.00 Encounter for general adult medical examination without abnormal findings (principal); F41.9 Anxiety disorder, unspecified; Z12.5 Encounter for screening for malignant neoplasm of prostate; Z12.11 Encounter for screening for malignant neoplasm of colon

== ENCOUNTER → 2025-03-05 15:49 | Outpatient (BNVA) | payer BC, SELFPAY | PROVIDERS: PCP Family Medicine; Visit Provider Family Medicine | DX: Z00.00 Encounter for general adult medical examination without abnormal findings (principal); F41.9 Anxiety disorder, unspecified | CPT/HCPCS: 96127 ==

== ENCOUNTER 2025-04-27 08:09 | Outpatient (REF) | payer BC, SELFPAY ==
--- OUTSIDE RECORDS SUMMARY | 2025-04-27 08:12 | XMS_ITS | Clinical Summary ---
Author Organization [facility] Address [address] [place] [id number] Phone Care Team Providers Care Paper Pattern Folder Name Role Phone GomezJacy nation Bhavya JARQUIN Primary Care Provider [phone] Social History Tobacco Use Types Packs/Day Years [...] PPO POS [employer] PPO POS Care Teams Paper Pattern Folder Relationship Specialty Start Date End Date Jacy Gomez NP PCP - General Family Medicine 04/24/19 Additional Source Comments The information contained in this document represents components of the legal health record. It is not the complete legal health record.[facility]
[2025-04-27 11:10] LABS: MANUAL DIFF FLAG NO
[2025-04-27 11:31] LABS: Hematocrit 46.8 % (42.0-52.0); Hemoglobin 15.3 g/dl (14.0-18.0); Imm Gran Abs Auto 0.02 X10*3/uL (0.00-0.03); Imm Gran Pct Auto 0.3 % (0.0-0.4); Lymphocytes Absolute Auto 2.0 X10*3/uL (1.2-4.9); Mean Corpuscular HGB Conc 32.7 g/dl (31.0-36.0); Mean Corpuscular Hemoglobin 27.7 pg (27.0-33.0); Mean Corpuscular Volume 84.8 fL (80.0-98.0); NRBC Abs Auto 0.000 X10*3/uL (0.0-0.012); NRBC Pct Auto 0.0 /100WBC (0.0-0.2); Platelet Count 226 X10*3/uL (160-400); Red Blood Count 5.52 X10*6/uL (4.60-5.80); White Blood Count 6.5 X10*3/uL (4.8-10.8)
[2025-04-27 11:32] LABS: Appearance Urine Turbid; Glucose Urine UA Negative (Negative); PH 6.0 (5.0-9.0); Specific Gravity - Urine >= 1.030 (1.005-1.025)
[2025-04-27 11:48] LABS: Alanine Aminotransferase 23 U/L (0-40); Albumin Level 4.7 g/dL (3.5-5.0); Alkaline Phosphatase 69 U/L (39-117); Anion Gap 13 (12-20); Aspartate Amino Transferase 23 U/L (5-37); Blood Urea Nitrogen 19 mg/dL (9-16); Calcium 9.6 mg/dL (8.4-10.2); Carbon Dioxide 26 mmol/L (22-29); Chloride 104 mmol/L (96-108); Cholesterol 189 mg/dL (<200); Estimated Glomerular Filt Rate 52; HDL Cholesterol 46 mg/dL (>40); Potassium 3.9 mmol/L (3.3-5.1); Sodium 139 mmol/L (135-145); Total Protein 7.6 g/dL (6.5-8.0); Triglycerides 105 mg/dL (<150)
[2025-04-27 12:17] LABS: Microalbum/Creatinine Ratio Ur 4.3 ug/mg cr (<30)
== END 2025-04-27 08:10 | disposition home or self-care (01) ==
LOC: HO.WFDLDS 08:09
PROVIDERS: Visit Provider Family Medicine
DX: Z00.00 Encounter for general adult medical examination without abnormal findings (principal); I10 Essential (primary) hypertension; Z13.29 Encounter for screening for other suspected endocrine disorder; Z13.6 Encounter for screening for cardiovascular disorders; Z12.5 Encounter for screening for malignant neoplasm of prostate
CPT/HCPCS: 36415; 80053; 80061; 81003; 82043; 82570; 84153; 84443; 85025